=== PATIENT | male | born 1985 | race Caucasian/White ===

== ENCOUNTER 2021-03-15 17:27 | Emergency (ER) | payer SELFPAY ==
[~2021-03-15] VITALS: Ht 182.9 cm; Wt 72.6 kg
[2021-03-15 17:27] VITALS: BP 85/48
--- NOTE | 2021-03-15 17:27 | NUR ---
BIB WHEELCHAIR RO ER BED 7
--- NOTE | 2021-03-15 17:28 | NUR ---
35 YO MALE BIBS ACCOMPANIED BY VIA WHEELCHAIR ASSIST FOR LEFT HAND LACERATION BY SARIAH. PATIENT HAS 5 LACERATIONS APPROX 4 CM IN LENGTH EACH. BLEEDING CURRENTLY BEING CONTROLLED WITH GUAZE PADS. TETANUS UP TO DATE, LESS THAN 10 YEARS AGO. 10/ PAIN TO L HAND, PATIENT IS DIAPHORETIC, APPEARS TO BE IN SEVERE PAIN, PLACED ON MONITOR, EVALUATED BY MD HALL UPON ARRIVAL. 04/05 PAIN TO L HAND, PMH NONE NKDA
[2021-03-15] MEDS ORDERED: ONDANSETRON 4 MG ODT PO ONE (18:20)
[2021-03-15] MEDS ORDERED: MORPHINE SULFATE 4 MG/ML SYR IM ONE (18:20)
--- NOTE | 2021-03-15 18:29 | NUR ---
PATIENT GIVEN MORPHINE 4MG IM TO LEFT DELTOID FOR PAIN C/O 10/10 OF L HAND.
[2021-03-15] MEDS ORDERED: LIDOCAINE/EPI 2% 1:100000 20 ML VIAL INJ ONE (18:45)
--- NOTE | 2021-03-15 19:22 | NUR ---
REPORT AND CONTINUATION OF CARE GIVEN TO SATURNINO CLARK.
--- NOTE | 2021-03-15 19:24 | NUR ---
RECIEVED REPORT FROM RN DAYSHIFT NURSE FOR CONTINUTIY OF CARE, PT IN STABLE CONDITION.
--- NOTE | 2021-03-15 20:45 | NUR ---
PT IN BED RESTING NO C/O VOICED.
--- NOTE | 2021-03-15 20:52 | NUR ---
AT BEDSIDE SUTURING PT WOUNDS.
[2021-03-15 21:53] VITALS: BP 112/78
--- NOTE | 2021-03-15 21:53 | NUR ---
Patient discharged with v/s stable. Written and verbal after care instructions given and explained. Patient verbalized understanding. Ambulatory with steady gait. All questions addressed prior to discharge. Advised to follow up with PMD.
== END 2021-03-15 21:53 | disposition home or self-care (01) ==
LOC: MED 17:27
DX: S61.412A Laceration without foreign body of left hand, initial encounter (principal); Z98.890 Other specified postprocedural states; W29.3XXA Contact with powered garden and outdoor hand tools and machinery, initial encounter; Y93.89 Activity, other specified; Y92.89 Other specified places as the place of occurrence of the external cause; Y99.8 Other external cause status
CPT/HCPCS: 12006; 73130; 96372; 99283; J2001; J2270; Q0092; Q0162

== ENCOUNTER 2021-04-08 00:23 | Emergency (ER) | payer MEDICAID ==
[~2021-04-08] VITALS: Ht 182.9 cm; Wt 68.0 kg
[2021-04-08 00:27] VITALS: BP 143/90
[2021-04-08 00:40] VITALS: BP 143/90
--- NOTE | 2021-04-08 00:40 | NUR ---
COVERING PRIMARY RN FOR LUNCH RELIEF. SEE COMPLETE ASSESSMENT.
--- NOTE | 2021-04-08 00:49 | NUR ---
DR. MATT AT BEDSIDE.
--- NOTE | 2021-04-08 00:52 | NUR ---
AT TIME OF SUTURE REMOVAL PT DECLINED TO CONTINUE D/T PAIN. PT OFFERED FOR HANDTO BE SOAKED TO LOOSEN SUTURES, PT DECLINED. PT ELOPED AT THIS TIME.
== END 2021-04-08 00:52 | disposition left against medical advice (07) ==
LOC: MED 00:23
DX: S61.412D Laceration without foreign body of left hand, subsequent encounter (principal); X58.XXXD Exposure to other specified factors, subsequent encounter
CPT/HCPCS: 99281

== ENCOUNTER 2023-11-13 11:43 | Emergency (ER) | payer SELFPAY ==
[~2023-11-13] VITALS: Ht 182.9 cm; Wt 72.6 kg
[2023-11-13 11:51] VITALS: BP 118/76; PULSE 90; RESP 18; TEMP 98.2; O2SAT 100
[2023-11-13] MEDS ORDERED: IBUP-2213 PO (12:34)
== END 2023-11-13 12:15 | disposition home or self-care (01) ==
LOC: MED 11:43
DX: S63.591A Other specified sprain of right wrist, initial encounter (principal); Z79.899 Other long term (current) drug therapy; V19.88XA Pedal cyclist (driver) (passenger) injured in other specified transport accidents, initial encounter; Y93.89 Activity, other specified; Y92.89 Other specified places as the place of occurrence of the external cause; Y99.8 Other external cause status
CPT/HCPCS: 73130; 99283